=== PATIENT | female | born 1985 | race Two or more races ===

== ENCOUNTER 2018-01-13 09:58 | Emergency (ER) | payer MEDICAID, OTHER ==
--- NOTE | 2018-01-13 10:39 | RADIOLOGY REPORT (SQ) ---
EXAM DESCRIPTION: HAND LEFT 3 VIEWS COMPLETED DATE/TIME: 01/13/2018 10:30 am REASON FOR STUDY: stabbed with knife through hand accidental COMPARISON: None. EXAM PARAMETERS: NUMBER OF VIEWS: Three views. TECHNIQUE: AP, lateral and oblique radiographic images acquired of the left hand. LIMITATIONS: None. FINDINGS: MINERALIZATION: Normal. BONES: No acute fracture or dislocation. No worrisome bone lesions. JOINTS: No effusions. SOFT TISSUES: No soft tissue swelling. No foreign body. OTHER: No other significant finding. IMPRESSION: NEGATIVE STUDY OF THE LEFT HAND. NO RADIOGRAPHIC EVIDENCE OF ACUTE INJURY. TECHNICAL DOCUMENTATION: JOB ID: [id number] [employer]- All Rights Reserved Reading location - IP/workstation name: [email or web address]
[2018-01-13] MEDS ORDERED: CEPHALEXIN 500 MG CAPSULE PO ONE (10:48)
[2018-01-13] MEDS ORDERED: DIPH/PERTUSS(ACELL)/TETANUS VAC/PF 0.5 ML SYR (>=10YO) IM ONE (10:49)
[2018-01-13] MEDS ORDERED: LIDOCAINE 1% INJ-PF (10 MG/ML) 30 ML SDV INJ ONE (10:55)
[2018-01-13] MEDS ORDERED: IBUPROFEN 800 MG TABLET PO ONE (12:16)
--- NOTE | 2018-01-13 12:22 | ER Document Report ---
ED Hand/Wrist Injury - General Chief Complaint: Puncture Wound Stated Complaint: WORK INJURY/HAND LACERATION Time Seen by Provider: 01/13/18 10:13 Mode of Arrival: Ambulatory Information source: Patient Notes: 32-year-old female presents to ED for a puncture wound to the hand in the palm out to the back of the hand. She states she accidentally stabbed herself with a knife while working at [employer]. She has a gauze dressing and Coban on when I first examined her the bleeding was under control. The hand was x- rayed. Patient has full range of motion to the hand. She has no sensory deficits. She states that the wound does not hurt as much as she thought it would hurt by having herself stepped like this. 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 TRAVEL OUTSIDE OF THE [place] IN LAST 30 DAYS: No - HPI Injury to: Hand - An entrance wound at the palm exit wound at base of the third finger Onset: Just prior to arrival Where: Work Timing: Still present Quality of pain: Achy Severity: Mild Pain Level: 1 Context: Other - Stab wound to the hand to the palm out at the base of the third finger - Related Data Allergies/Adverse Reactions: No Known Allergies Allergy (Verified 01/13/18 10:16) Past Medical History - General Information source: Patient - Social History Smoking Status: Never Smoker Cigarette use (# per day): No Chew tobacco use (# tins/day): No Smoking Education Provided: No Frequency of alcohol use: Occasional Drug Abuse: None Occupation: [employer] Lives with: Family Family History: Reviewed & Not Pertinent Patient has suicidal ideation: No Patient has homicidal ideation: No - Past Medical History Cardiac Medical History: Reports: None Pulmonary Medical History: Reports: None EENT Medical History: Reports: None Neurological Medical History: Reports: None Endocrine Medical History: Reports: None Renal/ Medical History: Reports: None Malignancy Medical History: Reports: None GI Medical History: Reports: None Musculoskeltal Medical History: Reports None Skin Medical History: Reports None Psychiatric Medical History: Reports: None Traumatic Medical History: Reports: None Infectious Medical History: Reports: None Surgical Hx: Negative Past Surgical History: Reports: None - Immunizations Immunizations up to date: Yes Hx Diphtheria, Pertussis, Tetanus Vaccination: Yes - 01/13/2018 Review of Systems - Review of Systems Constitutional: No symptoms reported EENT: No symptoms reported Cardiovascular: No symptoms reported Respiratory: No symptoms reported Gastrointestinal: No symptoms reported Genitourinary: No symptoms reported Female Genitourinary: No symptoms reported Musculoskeletal: Other - Stab wound to the hand to the palm exit wound at the third digit base Skin: Other - Stab wound to the hand entrance in the palm exited the third finger base Hematologic/Lymphatic: No symptoms reported Neurological/Psychological: No symptoms reported Physical Exam - Vital signs Vitals: Temp Pulse Resp BP Pulse Ox 98.0 F 85 16 118/76 98 01/13/18 10:02 01/13/18 10:02 01/13/18 10:02 01/13/18 10:02 01/13/18 10:02 Interpretation: Normal - General General appearance: Appears well, Alert - HEENT Head: Normocephalic, Atraumatic Eyes: Normal Pupils: PERRL - Respiratory Respiratory status: No respiratory distress Chest status: Nontender Breath sounds: Normal Chest palpation: Normal - Cardiovascular Rhythm: Regular Heart sounds: Normal auscultation Murmur: No - Abdominal Inspection: Normal Distension: No distension Bowel sounds: Normal Tenderness: Nontender Organomegaly: No organomegaly - Back Back: Normal, Nontender - Extremities General upper extremity: Normal color, Normal ROM, Normal temperature General lower extremity: Normal inspection, Nontender, Normal color, Normal ROM , Normal temperature, Normal weight bearing. No: Parveen's sign Hand: Tender, Laceration, No evidence of human bite, No evidence of FB, Swelling , Other - Stab wound entrance at the palm exit at the base of the third finger. No: Abrasion, Deformity, Dislocation, Ecchymosis, Instability - Neurological Neuro grossly intact: Yes Cognition: Normal Orientation: AAOx4 [place] Coma Scale Eye Opening: Spontaneous Valerie Coma Scale Verbal: Oriented Valerie Coma Scale Motor: Obeys Commands Valerie Coma Scale Total: 15 Speech: Normal Motor strength normal: LUE, RUE, LLE, RLE Sensory: Normal - Psychological Associated symptoms: Normal affect, Normal mood - Skin Skin Temperature: Warm Skin Moisture: Dry Skin Color: Normal Course - Re-evaluation Re-evalutation: 01/13/18 22:03 Patient presented to ED. Excellent. 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 When I first saw the patient patient had a dressing of gauze on with Coban wrapped around the plate. There was no bleeding. Patient states her pain level was a 1 out of 5. Cap refills were less than 3 seconds. Patient has full range of motion to all fingers to include opposition. No decrease in sensation. Patient was treated with Keflex tetanus immunization ibuprofen 800. The wound was cleaned well with surgical scrub irrigated with 500 cc of normal saline. Sterile dressing was applied with Coban and. Patient was encouraged to change the dressing clean with soap and water 3 times a day. Patient to follow-up with orthopedics by telephone on Tuesday to schedule follow-up appointment. Patient was discharged home with prescription for Keflex. Patient was instructed to keep hand clean and change dressing and clean with soap and water as instructed. Patient was instructed not to put her hands in any dirty water such as dish water or cooking. Patient was able to verbalize understanding of instructions and agreement with plan. Patient was instructed to please take all antibiotics until completed. Patient instructed to return immediately for any redness swelling or increasing pain to the area. Patient was instructed to keep her hand above her heart to reduce swelling. - Vital Signs Vital signs: Temp Pulse Resp BP Pulse Ox 98.7 F 76 18 121/88 H 100 01/13/18 12:28 01/13/18 12:28 01/13/18 12:28 01/13/18 12:28 01/13/18 12:28 - Diagnostic Test Radiology reviewed: Image reviewed, Reports reviewed Discharge - Discharge Clinical Impression: Stab wound of hand, left Qualifiers: Encounter type: initial encounter Qualified Code(s): S61.412A - Laceration without foreign body of left hand, initial encounter Condition: Stable Disposition: HOME, SELF-CARE Additional Instructions: Hand Laceration A laceration on the hand can present special problems. It may be difficult to keep the wound dry. Motion of the fingers can disturb the healing edges. Your work may involve exposure to damaging chemicals or water. Keep the wound clean and dry. If you can't keep the cut dry, undisturbed, and free of chemical exposure, please discuss this with the doctor. If any water or chemical gets onto the dressing, remove it, blot the wound dry, then apply a fresh bandage. Dressings should be changed every day. If any signs of infection occur (swelling, redness, increasing tenderness, red streaks, tender lumps in the armpit, or fever), see the doctor immediately. NON-SUTURED LACERATION: Your laceration did not require suturing. Some lacerations cannot be sutured because of increased infection risk, while others simply don't need stitches because they are shallow or very short. Your injury should be protected while it heals. Usually complete healing takes 10 to 14 days. Keep the dressing clean and dry, and change it every day. If you notice increasing pain, redness, swelling, drainage, or tender lumps in the armpit or groin above the injury, infection may be present. You should call the doctor at once. SOAP CLEANSING: Gently wash the wound daily using a mild soap (like Ivory, Phisoderm, Neutrogena). Use warm water, rubbing gently until all debris, ooze, and crusting have been washed from the wound. Allow to dry briefly (about 10 minutes) after cleaning. Repeat this cleansing at least three times a day for the first two days and then once or twice a day. ANTIBIOTIC OINTMENT PROTECTION: Your wounds are such that dressing them is not practical or optional. After cleansing, you should apply a thin coating of antibiotic ointment ( Bacitracin, not Neosporin) to the wounds at least three times daily. This lessens infection risk, and may decrease the amount of scarring. Use a q-tip or dull butter knife, not your finger, to apply this ointment. Any debris or ooze which builds up in the ointment should be gently rubbed off with a sterile gauze pad. Harder crusting may need to be gently scrubbed off with a clean wash cloth with soap and warm water, perhaps applying a warm, wet wash cloth to the wound for ten minutes first. Development of redness, severe itching, or blistering may mean allergy to the ointment. See the doctor. TETANUS IMMUNIZATION GIVEN: You have been given an immunization against tetanus. Please record this in your records. In general, a booster is needed only once every 10 years. The tetanus shot protects against tetanus or "lockjaw," which is a complication of certain wound infections (the tetanus shot cannot protect against the actual infection). The immunization site may become warm and red due to local reaction. If this occurs, apply warm compresses and take aspirin or ibuprofen to reduce inflammation and discomfort. Return for evaluation if the reaction becomes severe. Cephalexin The antibiotic you've been prescribed is a member of the cephalosporin class. This type of antibiotic covers a wide variety of infections, including those of the skin, lungs, and urinary tract. It's useful for staph infections. This antibiotic is slightly similar to the penicillin family. In rare cases , a person who is allergic to penicillin will also be allergic to this medication. If you have had a severe allergic reaction to penicillin, and have not taken this antibiotic since that time, notify your doctor. Antibiotics which cover many germs ("broad spectrum" antibiotics) are more likely to cause diarrhea or "yeast" infections. Women prone to vaginal yeast problems may suffer an attack after taking this antibiotic. In infants, oral thrush (white spots "stuck" on the cheek) or yeast diaper rash may result. See your doctor if these problems occur. Call at once if you develop itching, hives , shortness of breath, or lightheadedness. FOLLOW-UP CARE: Please return in ___2__ days for an infection check and dressing change. If you have been referred to another physician for follow-up care, call that physicians office for an appointment as you were instructed. If you experience a significant change in your laceration, or if you are concerned there may be an infection (swelling, redness, drainage, increasing tenderness, red streaks, tender lumps in the armpit or groin above the laceration, or fever) , return to the Emergency Department immediately re-evaluation. Prescriptions: Cephalexin Monohydrate [Keflex 500 mg Capsule] 500 mg PO Q6H 5 Days capsule Forms: Return to Work Referrals: NESTOR LARSON, [ACTIVE STAFF] - Follow up as needed
[2018-01-13 12:29] VITALS: BP 121/88
== END 2018-01-13 12:28 | disposition home or self-care (01) ==
LOC: ER 09:58
DX: S61.432A Puncture wound without foreign body of left hand, initial encounter (principal); W26.0XXA Contact with knife, initial encounter; Y93.G1 Activity, food preparation and clean up; Y92.511 Restaurant or cafe as the place of occurrence of the external cause; Y99.0 Civilian activity done for income or pay; Z23 Encounter for immunization
CPT/HCPCS: 99283; 90471; 73130; 90715; J3490

== ENCOUNTER 2018-01-15 14:05 | Emergency (ER) | payer OTHER ==
--- NOTE | 2018-01-15 15:16 | ER Document Report ---
ED Wound - General Chief Complaint: Wound Recheck Stated Complaint: REVISIT/LEFT HAND INJURY Time Seen by Provider: 01/15/18 14:28 Mode of Arrival: Ambulatory Information source: Patient TRAVEL OUTSIDE OF THE [place] IN LAST 30 DAYS: No - HPI Patient complains to provider of: Laceration, Puncture wound Notes: Patient is here with complaints of needing a wound rechecked. She was here a few days ago after she excellently stabbed herself in the left hand while at work. She states that the wound has been healing well. She denies any fever. She complains of minimal pain. She has been on antibiotics and tolerating these fine. Been no redness, drainage, swelling. No numbness, tingling, weakness. She denies any other complaints. - Related Data Allergies/Adverse Reactions: No Known Allergies Allergy (Verified 01/15/18 14:07) Past Medical History - Social History Smoking Status: Never Smoker Frequency of alcohol use: None Drug Abuse: None Family History: Reviewed & Not Pertinent Patient has suicidal ideation: No Patient has homicidal ideation: No Renal/ Medical History: Denies: Hx Peritoneal Dialysis - Immunizations Immunizations up to date: Yes Hx Diphtheria, Pertussis, Tetanus Vaccination: Yes - 01/13/2018 Review of Systems - Review of Systems -: Yes All other systems reviewed and negative Physical Exam - Vital signs Vitals: Temp Pulse Resp BP Pulse Ox 98.1 F 87 14 128/68 H 99 01/15/18 14:09 01/15/18 14:09 01/15/18 14:09 01/15/18 14:09 01/15/18 14:09 - Notes Notes: GENERAL: alert, cooperative, nontoxic, no distress. HEAD: normocephalic, atraumatic EYES: conjunctiva pink without discharge, no external redness or swelling. EARS: no external swelling, no external redness NOSE: atraumatic, no external swelling MOUTH/THROAT: mucous membranes moist and pink NECK: soft, supple, full range of motion, no meningismus. CHEST: no distress, lungs clear and equal throughout. No wheezing, rales, rhonchi. CARDIAC: regular rate and rhythm, no murmur, normal capillary refill, normal pulses. BACK: full range of motion, no CVA tenderness. EXTREMITIES: full range of motion of all extremities. No redness, no swelling. Healing laceration to the palm of the left hand as well as the middle finger. There is no surrounding erythema. No tenderness. No drainage. Bruising noted to the dorsum of the hand. Normal cap refill, sensation, flexion and extension of the finger. NEURO: alert and oriented 3, no focal deficits, full range of motion of all extremities. PYSCH: appropriate mood, affect. Patient is cooperative. SKIN: pink, warm, dry, no rash. Course - Re-evaluation Re-evalutation: 01/15/18 15:13 Patient is nontoxic appearing with stable vitals. She was here a few days ago when she accidentally stabbed her hand with a knife while at work. She is here for a wound recheck. She denies any significant complaints or pain. The wound appears to be healing well with no signs of infection. She has normal neurovascular exam. She is already on antibiotics. She had a fresh dressing applied here in the emergency department and will be discharged home with instructions to follow-up with orthopedics as instructed on her previous visit. Follow-up sooner for increasing pain, fever, redness, drainage, numbness, tingling, weakness, any further concerns. The patient is noted to have elevated blood pressure during today's emergency department visit. The patient was informed of this finding. The patient was instructed that this may be related to pre-hypertension and requires further evaluation with a primary care provider. The patient has no hypertensive symptoms at this time. The patient's emergency department workup and current diagnosis were explained to the patient and or family. Follow-up instructions were provided. Medications if prescribed were discussed. Instructions for when to return to the emergency department including specific worrisome symptoms were discussed with the patient and/or family. - Vital Signs Vital signs: Temp Pulse Resp BP Pulse Ox 98.1 F 87 14 128/68 H 99 01/15/18 14:09 01/15/18 14:09 01/15/18 14:09 01/15/18 14:01/15/18 14:09 Discharge - Discharge Clinical Impression: Encounter for wound re-check Condition: Stable Disposition: HOME, SELF-CARE Instructions: Puncture Wound ([facility]) Additional Instructions: Keep wound clean and dry. Clean wound twice a day with soap and water. Apply thin layer of bacitracin. Continue taking her antibiotics. Follow-up with orthopedics as scheduled. Follow-up sooner for increasing pain, fever, redness , drainage, numbness, tingling, weakness, any further concerns. Your blood pressure was elevated during today's visit. Have this rechecked with your doctor. Forms: Elevated Blood Pressure, Smoking Cessation Education Referrals: [facility] [Provider Group] - Follow up as needed
[2018-01-15 15:35] VITALS: BP 103/53
== END 2018-01-15 15:35 | disposition home or self-care (01) ==
LOC: ER 14:05
DX: S61.412D Laceration without foreign body of left hand, subsequent encounter (principal); S61.213D Laceration without foreign body of left middle finger without damage to nail, subsequent encounter; W26.0XXD Contact with knife, subsequent encounter; R03.0 Elevated blood-pressure reading, without diagnosis of hypertension
CPT/HCPCS: 99282